=== PATIENT | female | born 1980 | race Caucasian/White ===

== ENCOUNTER 2018-05-23 23:28 | Observation (INO) ==
[2018-05-23 23:55] LABS: Basophils % 0.2 % (0.1-2.0); Eosinophils # 0.1 K/mm3 (0.0-0.4); Eosinophils % 1.1 % (0.1-12.0); Hematocrit 48.1 % (37.0-47.0); Hemoglobin 15.8 g/dL (12.2-16.2); Lymphocytes # 1.7 K/mm3 (0.7-4.5); Lymphocytes % 15.5 % (10-50); Mean Corpuscular HGB Conc 32.8 g/dL (31.8-35.4); Mean Corpuscular Hemoglobin 31.5 pg (27.0-31.2); Mean Corpuscular Volume 96.2 fl (81-99); Mean Platelet Volume 8.4 fl (7.4-10.4); Microscopic, Urine URINE MICROSCOPIC (MICROSCOPIC); Monocytes # 0.5 K/mm3 (0.1-1.0); Monocytes % 4.2 % (1.7-9.3); Neutrophils # 8.6 K/mm3 (1.8-7.8); Platelet Count 283 K/mm3 (142-424); Red Cell Distribution Width 13.3 % (11.5-17.5); White Blood Count 10.9 K/mm3 (4.8-10.8)
[2018-05-24 00:02] LABS: Appearance,Urine CLEAR (Clear); Bilirubin,Urine Negative (Negative); Blood, Urine 1+ (Negative); Color,Urine YELLOW (Yellow); Glucose,Urine (UA) Negative (Negative); Ketones,Urine Negative (Negative); Leukocyte Esterase,Urine Negative (Negative); Protein,Urine Negative (Negative); Specific Gravity, Urine 1.015 (1.005-1.030); Urobilinogen,Urine 0.2 EU/dl (0.2)
[2018-05-24 00:08] LABS: Albumin Level 4.5 gm/dL (3.4-5.0); Albumin/Globulin Ratio 1.2 (1.1-1.8); Anion Gap 13.4 mEq/L (5-15); Bilirubin,Total 0.4 mg/dL (0.2-1.0); C-Reactive Protein 0.4 mg/L (0.0-0.9); Calcium 9.3 mg/dL (8.5-10.1); Globulin 3.7 gm/dl (1.3-3.2); Potassium 3.4 mmoL/L (3.5-5.1); Total Protein,Serum 8.2 gm/dL (6.4-8.2)
[2018-05-24 00:17] LABS: Bacteria,Urine 1+ /lpf; WBC,Urine Occasional #/hpf (0-3)
--- NOTE | 2018-05-24 00:24 | Emergency Department Note ---
ED Disposition Clinical Impression: Tobacco use Vomiting Qualifiers: Vomiting type: unspecified Vomiting Intractability: intractable Nausea presence: with nausea Qualified Code(s): R11.2 - Nausea with vomiting, unspeci fied Disposition: Admitted as Observation Condition on Discharge: Good - Critical Care Critical Care Time: No Attestation: On 05/23/18, the high probability of a clinically significant, sudden or life threatening deterioration of the following system(s) required my full and direct attention, intervention and personal management. The time I documented below is in addition to time spent performing reported procedures but includes the following listed in this critical care notation. Medical Decision Making - Medical Records Medical records reviewed: Yes: I reviewed the patient's medical records. - Thomas Inquiry Pt receiving controlled substance: No Vital Signs: 05/23/18 23:28 05/24/18 00:00 05/24/18 00:59 Temperature 97.9 F Temperature Source Oral Pulse Rate [Right Brachial] 83 78 81 Respiratory Rate 15 16 16 Blood Pressure [Right Arm] 126/85 121/84 131/82 Blood Pressure Mean [Right Arm] 98 96 98 Blood Pressure Source [Right Arm] Automatic Cuff Automatic Cuff Blood Pressure Position [Right Arm] Supine Sitting 02 Sat by Pulse Oximetry 98 98 98 Oxygen Delivery Method Room Air Room Air Room Air 05/24/18 01:46 Temperature Temperature Source Pulse Rate [Right Brachial] 74 Respiratory Rate 16 Blood Pressure [Right Arm] 121/86 Blood Pressure Mean [Right Arm] 97 Blood Pressure Source [Right Arm] Blood Pressure Position [Right Arm] 02 Sat by Pulse Oximetry 98 Oxygen Delivery Method Room Air - Lab Data Lab results reviewed: Yes: I reviewed the patient's lab results. Lab Results 05/23/18 23:50: Urine Color Yellow, Urine Appearance Clear, Urine pH 6.0, Ur Specific [place] 1.015, Urine Protein Negative, Urine Glucose (UA) Negative, Urine Ketones Negative, Urine Blood 1+, Urine Nitrate Negative, Urine Bilirubin Negative, Urine Urobilinogen 0.2, Ur Leukocyte Esterase Negative, Urine RBC 3-5, Urine WBC Occasional, Ur Squamous Epith Cells 5-10, Urine Bacteria 1+ 05/23/18 23:50: WBC 10.9 H, RBC 5.00, Hgb 15.8, Hct 48.1 H, MCV 96.2, MCH 31.5 H , MCHC 32.8, RDW 13.3, Plt Count 283, MPV 8.4, Neut % (Auto) 79.0, Lymph % (Auto) 15.5, [place] % (Auto) 4.2, Eos % (Auto) 1.1, Baso % (Auto) 0.2, Neut # (Auto) 8.6 H, Lymph # (Auto) 1.7, [place] # (Auto) 0.5, Eos # (Auto) 0.1, Baso # (Auto) 0.0 05/23/18 23:50: Sodium 138, Potassium 3.4 L, Chloride 102, Carbon Dioxide 26, Anion Gap 13.4, BUN 13, Creatinine 0.81, Estimated Creat Clear 110, Estimated GFR 80, Est GFR ( Amer) 97, Glucose 106, Calcium 9.3, Total Bilirubin 0.4, AST 16, ALT 40, Alkaline Phosphatase 82, C-Reactive Protein 0.4, Total Protein 8.2, Albumin 4.5, Globulin 3.7 H, Albumin/Globulin Ratio 1.2, Amylase 60, Lipase 159 05/23/18 23:50: Serum HCG, Qual Negative 05/23/18 23:50: ESR 12 Result diagrams: 05/23/18 23:50 05/23/18 23:50 Orders (Tests/Meds): ED MEDICATIONS Generic Name Dose Route Start Last Admin Trade Name Freq PRN Reason Stop Dose Admin Sodium Chloride 1,000 mls @ 999 mls/hr 05/24/18 01:00 Sod Chlor 0.9% 1000ml Bag IV 05/24/18 02:00 .Q1H1M JUS Sodium Chloride 10 ml 05/23/18 23:43 Saline Flush 10ml Syringe IV 06/22/18 23:42 NEEDED PRN Maintain IV Site Discontinued Medications Generic Name Dose Route Start Last Admin Trade Name Freq PRN Reason Stop Dose Admin Famotidine 20 mg 05/23/18 23:43 05/24/18 00:19 Pepcid 20mg/2ml Vial IV 05/23/18 23:44 20 mg ONCE ONE Administration Sodium Chloride 1,000 mls @ 999 mls/hr 05/23/18 23:45 05/24/18 00:20 Sod Chlor 0.9% 1000ml Bag IV 05/24/18 00:45 999 mls/hr .Q1H1M JUS Administration Metoclopramide HCl 10 mg 01/03/19 23:43 05/24/18 00:20 Reglan 10mg/2ml Vial IVP 05/23/18 23:44 10 mg ONCE ONE Administration Ondansetron HCl 4 mg 05/24/18 00:58 Zofran 4mg/2ml Vial IV 05/24/18 00:59 ONCE ONE ORDERS Category Date Time Status CT abdomen pelvis wo con Stat Cat Scan 05/24/18 00:07 Taken Urinalysis and Microscopic Stat Lab 05/23/18 23:50 Ordered - CT Data CT Scan: Abdomen, Pelvis Time Received: 02:[address] Reviewed: Yes: I have viewed the radiologist's interpretation Preliminary Findings: Normal/NAD - Physician Consults Physician Consulted: iona Reason -: Admission Nausea/Vomiting/Diarrhea HPI - General Chief complaint: Nausea/Vomiting/Diarrhea Stated complaint: Vomiting, nausea X1 week Time Seen by Provider: 05/23/18 23:45 Mode of Arrival: Ambulatory Source of Information: Patient, Spouse, Medical Record Limitations: No Limitations Description of Symptoms (Recalled from ER Triage Doc. by RN): Pt here with c/o vomiting after eating. Denies any pain, denies any other symptoms, reports it just started about a week ago. Reports that once she eats, she starts vomiting for approx several hours, and it doesn't go away despite taking zofran. Spoke to Dr Oswald who advised her to come to the ED. - History of Present Illness HPI Narrative: upper abd pain with n/v w/o melena complaint: nausea, vomiting Onset (ago): hour(s) Associated Abdominal Pain: No Severity: moderate Associated symptoms: denies other symptoms - Related Data Home Medications Medication Instructions Recorded Confirmed No Known Home Medications 05/23/18 05/23/18 Allergies Allergy/AdvReac Type Severity Reaction Status Date / Time acetaminophen [From VICODIN] Allergy Intermediate Verified 05/24/18 00:19 hydrocodone [From VICODIN] Allergy Intermediate Verified 05/24/18 00:19 latex [LATEX] Allergy Intermediate I-RASH Verified 05/24/18 00:19 oxycodone [From PERCOCET] Allergy Unknown Verified 05/24/18 00:19 [facility] History - Hepatitis A Screen Drug use history?: No High risk sexual behaviors?: No History of sexually transmitted infection?: No Currently employed?: No Childcare worker?: No Do you have indoor plumbing?: Yes Do you have electricity?: Yes Attestation statement:: This patient has been screened for Hepatitis A risk factors. I have reviewed the patient's past medical history: Yes Medical History: Denies:: Cancer, Diabetes Mellitus Type 1, Diabetes Mellitus Type 2, MRSA Amputation: No Fractures: No - Social History Smoking Status: Current every day smoker Tobacco Type: cigarettes Alcohol Intake: never - Psychiatric History Expresses thoughts of harming self/others: None Suicide Plan Description: No Plan ROS Obtained: Yes All systems reviewed & no additional complaints - Constitutional Constitutional: Denies fever(s) - Eyes Eyes: Denies change in vision - ENT Ears, Nose, Mouth, and Throat: Denies sore throat - Cardiovascular Cardiovascular: Denies chest pain - Respiratory Respiratory: No cough - Gastrointestinal Gastrointestingal: Reports: abdominal pain, nausea, vomiting. Denies: diarrhea, black, tarry stools - Genitourinary Male Genitourinary: Reports hematuria Female Genitourinary: Denies dysuria, Denies hematuria - Musculoskeletal Musculoskeletal: Denies joint pain, Denies neck pain - Integumentary/Breasts Skin/Breast: Denies rash - Neurologic Neurologic: Denies headache(s), Denies seizure-like activity Physical Exam - General General appearance: alert, in no apparent distress - Head Head exam: normocephalic - Eye Eye exam: Present: PERRL, EOMI. Absent: scleral icterus - ENT ENT exam: Present: mucous membranes dry - Neck Neck exam: Present: trachea midline - Respiratory Respiratory exam: Absent: respiratory distress - Cardiovascular Cardiovascular exam: Present: regular rate, systolic murmur - Abdominal Exam Abdominal exam: Present: soft. Absent: tenderness - Extremities Exam Extremities exam: Present: full ROM - Neurological Exam Neurological exam: Present: alert, oriented X3, CN II-XII intact - Psychiatric Psychiatric exam: Present: normal affect - Skin Skin exam: Absent: rash
--- NOTE | 2018-05-24 07:19 | Pharmacy Consult Notes ---
[facility] Pharmacy VTE Monitoring - Patient Demographics Admission date: 05/24/18 Report Date: 05/24/18 Time: 07:18 Allergies/Adverse Reactions: Patient Allergies acetaminophen [From VICODIN] Allergy (Intermediate, Verified 05/24/18 00:19) hydrocodone [From VICODIN] Allergy (Intermediate, Verified 05/24/18 00:19) latex [LATEX] Allergy (Intermediate, Verified 05/24/18 00:19) I-RASH oxycodone [From PERCOCET] Allergy (Unknown, Verified 05/24/18 00:19) Height: 1.6 m Weight: 78.273 kg Patient Problems: Current Active Problems Vomiting (Acute) Tobacco use (Acute) - VTE Risk Labs: VTE Related Lab Results Hgb 15.8 g/dL (12.2-16.2) 05/23/18 23:50 Hct 48.1 % (37.0-47.0) H 05/23/18 23:50 Plt Count 283 K/mm3 (142-424) 05/23/18 23:50 BUN 13 mg/dL (7-18) 05/23/18 23:50 Creatinine 0.81 mg/dL (0.55-1.02) 05/23/18 23:50 Estimated Creat Clear 110 mL/min (50-200) 05/23/18 23:50 Was VTE Risk Assessment Performed: Yes VTE Score: 1 VTE Risk Level: Very Low Risk Clinical Trial Participant: No - Prophylaxis VTE Prophylaxis Ordered?: Yes Types of VTE Prophylaxis: TEDS Knee High
[2018-05-24 07:31] LABS: Anion Gap 11.5 mEq/L (5-15); Potassium 3.5 mmoL/L (3.5-5.1)
[2018-05-24 07:36] LABS: Basophils % 0.2 % (0.1-2.0); Calcium 8.2 mg/dL (8.5-10.1); Eosinophils # 0.1 K/mm3 (0.0-0.4); Eosinophils % 1.1 % (0.1-12.0); Hematocrit 40.2 % (37.0-47.0); Lymphocytes # 2.1 K/mm3 (0.7-4.5); Lymphocytes % 27.1 % (10-50); Mean Corpuscular HGB Conc 32.7 g/dL (31.8-35.4); Mean Corpuscular Hemoglobin 31.3 pg (27.0-31.2); Mean Corpuscular Volume 95.9 fl (81-99); Mean Platelet Volume 7.9 fl (7.4-10.4); Monocytes # 0.4 K/mm3 (0.1-1.0); Monocytes % 5.3 % (1.7-9.3); Neutrophils # 5.1 K/mm3 (1.8-7.8); Neutrophils % 66.3 % (37.0-80.0); Platelet Count 223 K/mm3 (142-424); Red Cell Distribution Width 13.1 % (11.5-17.5); White Blood Count 7.8 K/mm3 (4.8-10.8)
[2018-05-24 07:43] LABS: Hemoglobin 13.1 g/dL (12.2-16.2)
--- NOTE | 2018-05-24 08:17 | Consult Report ---
*Admission Date: 05/24/18 *Chief complaint: Vomiting *History of present illness: Healthy white female. She states that over the past week she has had postprandial vomiting. This occurs approximately 30 minutes after eating. There are no particular food types which are more problematic. She states that it occurs within a food intake. She states that she has been able to take in fluids without issue. She denies any abdominal pain. Denies any diarrhea. Never had any prior similar symptoms. No prior history of known gallbladder issues. No known prior history of ulcer disease. Yesterday after she had eaten some cheese and pepperoni she had intractable vomiting and presented to the emergency department. She was seen and evaluated and blood work was unremarkable. She had a CT scan performed without any contrast whatsoever which was unremarkable. She was admitted for inpatient management and surgical consultation. Review of Systems - Review of Systems Review of systems:: pertinent systems reviewed and negative unless documented below - Constitutional Denies anorexia - Eyes Denies change in vision - ENT Denies abnormal hearing - *Cardiovascular Denies chest pain - *Respiratory Denies shortness of breath - *Gastrointestinal Reports vomiting, Denies abdominal pain - *Genitourinary Denies abnormal periods - *Musculoskeletal Denies abnormal walking - *Neurologic Denies headache(s), Denies seizure-like activity [facility] History Medical History: Denies:: Cancer, Diabetes Mellitus Type 1, Diabetes Mellitus Type 2, MRSA Other Surgeries: Yes: Appendectomy, , Hysterectomy-Total Amputation: No Fractures: No - *Social History Smoking Status: Current every day smoker Tobacco Type: cigarettes # Packs/Day (cigarettes): 1 Alcohol Intake: never Occupational Status: employed Housing: house Household Members: spouse - Psychiatric History Expresses thoughts of harming self/others: None Suicide Plan Description: No Plan *Family Hx:: Cancer Meds Home Medications Medication Instructions Recorded Confirmed Type Desvenlafaxine Succinate 50 mg PO DAILY 05/24/18 05/24/18 History [Desvenlafaxine Succinate ER] Allergies Allergy/AdvReac Type Severity Reaction Status Date / Time acetaminophen [From VICODIN] Allergy Intermediate Verified 05/24/18 00:19 hydrocodone [From VICODIN] Allergy Intermediate Verified 05/24/18 00:19 latex [LATEX] Allergy Intermediate I-RASH Verified 05/24/18 00:19 oxycodone [From PERCOCET] Allergy Unknown Verified 05/24/18 00:19 Exam Vital signs and Labs for Last 24 Hours: Temp Pulse Resp BP Pulse Ox 97.9 F 78 17 129/76 99 05/24/18 03:03 05/24/18 03:03 05/24/18 03:03 05/24/18 03:03 05/24/18 03:03 Laboratory Results - last 24 hr 05/23/18 23:50: Urine Color Yellow, Urine Appearance Clear, Urine pH 6.0, Ur Specific [place] 1.015, Urine Protein Negative, Urine Glucose (UA) Negative, Urine Ketones Negative, Urine Blood 1+, Urine Nitrate Negative, Urine Bilirubin Negative, Urine Urobilinogen 0.2, Ur Leukocyte Esterase Negative, Urine RBC 3-5, Urine WBC Occasional, Ur Squamous Epith Cells 5-10, Urine Bacteria 1+ 05/23/18 23:50: WBC 10.9 H, RBC 5.00, Hgb 15.8, Hct 48.1 H, MCV 96.2, MCH 31.5 H , MCHC 32.8, RDW 13.3, Plt Count 283, MPV 8.4, Neut % (Auto) 79.0, Lymph % (Auto) 15.5, [place] % (Auto) 4.2, Eos % (Auto) 1.1, Baso % (Auto) 0.2, Neut # (Auto) 8.6 H, Lymph # (Auto) 1.7, [place] # (Auto) 0.5, Eos # (Auto) 0.1, Baso # (Auto) 0.0 05/23/18 23:50: Sodium 138, Potassium 3.4 L, Chloride 102, Carbon Dioxide 26, Anion Gap 13.4, BUN 13, Creatinine 0.81, Estimated Creat Clear 110, Estimated GFR 80, Est GFR ( Amer) 97, Glucose 106, Calcium 9.3, Total Bilirubin 0.4, AST 16, ALT 40, Alkaline Phosphatase 82, C-Reactive Protein 0.4, Total Protein 8.2, Albumin 4.5, Globulin 3.7 H, Albumin/Globulin Ratio 1.2, Amylase 60, Lipase 159 05/23/18 23:50: Serum HCG, Qual Negative 05/23/18 23:50: ESR 12 05/24/18 06:46: WBC 7.8 D, RBC 4.20, Hgb 13.1 D, Hct 40.2, MCV 95.9, MCH 31.3 H, MCHC 32.7, RDW 13.1, Plt Count 223, MPV 7.9, Neut % (Auto) 66.3, Lymph % (Auto) 27.1, [place] % (Auto) 5.3, Eos % (Auto) 1.1, Baso % (Auto) 0.2, Neut # (Auto) 5.1, Lymph # (Auto) 2.1, [place] # (Auto) 0.4, Eos # (Auto) 0.1, Baso # (Auto) 0.0 05/24/18 06:46: Sodium 141, Potassium 3.5, Chloride 109 H, Carbon Dioxide 24, Anion Gap 11.5, BUN 9 D, Creatinine 0.61 D, Estimated Creat Clear 158, Estimated GFR 111, Est GFR ( Amer) 134 D, Glucose 85, Calcium 8.2 L D 05/24/18 06:46: Magnesium 1.7 I & O for Last 24 hours: Intake & Output 05/21/18 05/22/18 05/23/18 05/24/18 11:59 11:59 11:59 11:59 Intake Total 2251 / 2251 Balance 2251 / 2251 Weight 172 lb 9 oz - *Routine HEENT Exam Head: Present: normocephalic Eye: Present: EOMI, PERRL ENT: Present: mucous membranes moist - *Routine Neck Exam Present: supple. Absent: lymphadenopathy - *Routine Respiratory Exam Present: CTA bilaterally - *Routine Cardiovascular Exam Present: RRR - *Routine Abdominal Exam Present: soft, normoactive bowel sounds. Absent: tenderness - *Routine Extremities Exam Absent: cyanosis, clubbing, edema - *Routine Skin Exam Present: warm. Absent: rash - *Routine Neurological Exam Present: alert, oriented X3 - Detailed Eye Exam Eyelids: Left normal inspection Results - Labs 05/24/18 06:46 05/24/18 06:46 Laboratory Results - last 24 hr 05/23/18 23:50: Urine Color Yellow, Urine Appearance Clear, Urine pH 6.0, Ur Specific [place] 1.015, Urine Protein Negative, Urine Glucose (UA) Negative, Urine Ketones Negative, Urine Blood 1+, Urine Nitrate Negative, Urine Bilirubin Negative, Urine Urobilinogen 0.2, Ur Leukocyte Esterase Negative, Urine RBC 3-5, Urine WBC Occasional, Ur Squamous Epith Cells 5-10, Urine Bacteria 1+ 05/23/18 23:50: WBC 10.9 H, RBC 5.00, Hgb 15.8, Hct 48.1 H, MCV 96.2, MCH 31.5 H , MCHC 32.8, RDW 13.3, Plt Count 283, MPV 8.4, Neut % (Auto) 79.0, Lymph % (Auto) 15.5, [place] % (Auto) 4.2, Eos % (Auto) 1.1, Baso % (Auto) 0.2, Neut # (Auto) 8.6 H, Lymph # (Auto) 1.7, [place] # (Auto) 0.5, Eos # (Auto) 0.1, Baso # (Auto) 0.0 05/23/18 23:50: Sodium 138, Potassium 3.4 L, Chloride 102, Carbon Dioxide 26, Anion Gap 13.4, BUN 13, Creatinine 0.81, Estimated Creat Clear 110, Estimated GFR 80, Est GFR ( Amer) 97, Glucose 106, Calcium 9.3, Total Bilirubin 0.4, AST 16, ALT 40, Alkaline Phosphatase 82, C-Reactive Protein 0.4, Total Protein 8.2, Albumin 4.5, Globulin 3.7 H, Albumin/Globulin Ratio 1.2, Amylase 60, Lipase 159 05/23/18 23:50: Serum HCG, Qual Negative 05/23/18 23:50: ESR 12 05/24/18 06:46: WBC 7.8 D, RBC 4.20, Hgb 13.1 D, Hct 40.2, MCV 95.9, MCH 31.3 H, MCHC 32.7, RDW 13.1, Plt Count 223, MPV 7.9, Neut % (Auto) 66.3, Lymph % (Auto) 27.1, [place] % (Auto) 5.3, Eos % (Auto) 1.1, Baso % (Auto) 0.2, Neut # (Auto) 5.1, Lymph # (Auto) 2.1, [place] # (Auto) 0.4, Eos # (Auto) 0.1, Baso # (Auto) 0.0 05/24/18 06:46: Sodium 141, Potassium 3.5, Chloride 109 H, Carbon Dioxide 24, Anion Gap 11.5, BUN 9 D, Creatinine 0.61 D, Estimated Creat Clear 158, Estimated GFR 111, Est GFR ( Amer) 134 D, Glucose 85, Calcium 8.2 L D 05/24/18 06:46: Magnesium 1.7 Assessment and Plan - Assessment and plan all Dx Assessment and Plan for all problems:: Patient has postprandial vomiting with food intake. Gallbladder ultrasound ordered for today. Etiology unclear. Gallbladder etiology possible although unusual as the patient does not have any pain. Plan to obtain upper GI series as well. Could require gastroenterology evaluation.
--- NOTE | 2018-05-24 08:27 | History & Physical Report ---
*Admission Date: 05/24/18 <Alka Mora 05/24/18 08:30> *Chief complaint: nausea and vomiting <Alka Mora 05/24/18 08:30> *History of present illness: Ms. Craft is a 38-year-old female who states she began having some nausea after eating approximately 1 week ago. Sunday night, she vomited one time and last night, she vomited 6 times. She was unable to keep down even water last night and therefore presented to the emergency room for evaluation and treatment. She denies any abdominal pain. She has not vomited since she arrived at the emergency room and was given antiemetics and started on IV fluids. She has not had any food this am. <Alka Mora 05/24/18 08:30> [facility] History Medical History: Reports:: Depression Denies:: Cancer, Diabetes Mellitus Type 1, Diabetes Mellitus Type 2, MRSA <Alka Mora 05/24/18 08:30> Other Surgeries: Yes: Appendectomy, , Hysterectomy-Total, Other (left nephrectomy, knee scope) <Alka Mora 05/24/18 08:30> Amputation: No <Alka Mora 05/24/18 08:30> Fractures: No <Alka Mora 05/24/18 08:30> - *Social History Smoking Status: Current every day smoker <Alka Mora 05/24/18 08:30> Tobacco Type: cigarettes <Alka Mora 05/24/18 08:30> # Packs/Day (cigarettes): 1 <Alka Mora 05/24/18 08:30> Alcohol Intake: never <Alka Mora 05/24/18 08:30> Occupational Status: employed <Alka Mroa 05/24/18 08:30> Housing: house <Alak Mora 05/24/18 08:30> Household Members: spouse <Alka Mora 05/24/18 08:30> - Psychiatric History Expresses thoughts of harming self/others: None <Alka Mora 05/24/18 08:30> Suicide Plan Description: No Plan <Alka Mora 05/24/18 08:30> *Family Hx:: Cancer, Hypertension <Alka Mora 05/24/18 08:30> Review of Systems - Constitutional Reports weakness, Denies body ache(s), Denies chills <Alka Mora 05/24/18 08:30> - Eyes Denies blurry vision, Denies double vision <Alka Mora 05/24/18 08:30> - ENT Denies nasal congestion, Denies sore throat <Alka Mora 05/24/18 08:30> - *Cardiovascular Denies chest pain, Denies leg swelling <Alka Mora 05/24/18 08:30> - *Respiratory Denies cough, Denies shortness of breath <Alka Mora 05/24/18 08:30> - *Gastrointestinal Reports nausea, Reports vomiting, Denies abdominal pain, Denies loose stools <Alka Mora 05/24/18 08:30> - *Genitourinary Denies difficulty urinating, Denies painful urination <Alka Mora 05/24/18 08:30> - *Musculoskeletal Denies joint pain <Alka Mora 05/24/18 08:30> - *Neurologic Reports headache(s), Reports weakness, Denies abnormal walking, Denies abnormal hearing, Denies seizure-like activity, Denies dizziness <Alka Mora 05/24/18 08:30> Meds Home Medications Medication Instructions Recorded Confirmed Type Desvenlafaxine Succinate 50 mg PO DAILY 05/24/18 05/24/18 History [Desvenlafaxine Succinate ER] Metoclopramide HCl [Reglan 5mg 5 mg PO Q6HP PRN 30 Days #30 tab 05/24/18 Rx Tablet] Promethazine HCl [Phenergan 12.5mg 12.5 mg PO Q6HP PRN #30 tablet 05/24/18 Rx tablet] <Mehreen Oswald 05/24/18 13:30> Allergies Allergy/AdvReac Type Severity Reaction Status Date / Time acetaminophen [From VICODIN] Allergy Intermediate Verified 05/24/18 00:19 hydrocodone [From VICODIN] Allergy Intermediate Verified 05/24/18 00:19 latex [LATEX] Allergy Intermediate I-RASH Verified 01/04/19 00:19 oxycodone [From PERCOCET] Allergy Unknown Verified 05/24/18 00:19 <Sound,Mehreen - 05/24/18 13:30> Exam Vital signs and Labs for Last 24 Hours: Temp Pulse Resp BP Pulse Ox 98.0 F 87 16 103/60 L 97 05/24/18 08:00 05/24/18 08:00 05/24/18 08:00 05/24/18 08:00 05/24/18 08:00 Laboratory Results - last 24 hr 05/23/18 23:50: Urine Color Yellow, Urine Appearance Clear, Urine pH 6.0, Ur Specific [place] 1.015, Urine Protein Negative, Urine Glucose (UA) Negative, Urine Ketones Negative, Urine Blood 1+, Urine Nitrate Negative, Urine Bilirubin Negative, Urine Urobilinogen 0.2, Ur Leukocyte Esterase Negative, Urine RBC 3-5, Urine WBC Occasional, Ur Squamous Epith Cells 5-10, Urine Bacteria 1+ 05/23/18 23:50: WBC 10.9 H, RBC 5.00, Hgb 15.8, Hct 48.1 H, MCV 96.2, MCH 31.5 H , MCHC 32.8, RDW 13.3, Plt Count 283, MPV 8.4, Neut % (Auto) 79.0, Lymph % (Auto) 15.5, [place] % (Auto) 4.2, Eos % (Auto) 1.1, Baso % (Auto) 0.2, Neut # (Auto) 8.6 H, Lymph # (Auto) 1.7, [place] # (Auto) 0.5, Eos # (Auto) 0.1, Baso # (Auto) 0.0 05/23/18 23:50: Sodium 138, Potassium 3.4 L, Chloride 102, Carbon Dioxide 26, Anion Gap 13.4, BUN 13, Creatinine 0.81, Estimated Creat Clear 110, Estimated GFR 80, Est GFR ( Amer) 97, Glucose 106, Calcium 9.3, Total Bilirubin 0.4, AST 16, ALT 40, Alkaline Phosphatase 82, C-Reactive Protein 0.4, Total Protein 8.2, Albumin 4.5, Globulin 3.7 H, Albumin/Globulin Ratio 1.2, Amylase 60, Lipase 159 05/23/18 23:50: Serum HCG, Qual Negative 05/23/18 23:50: ESR 12 05/24/18 06:46: WBC 7.8 D, RBC 4.20, Hgb 13.1 D, Hct 40.2, MCV 95.9, MCH 31.3 H, MCHC 32.7, RDW 13.1, Plt Count 223, MPV 7.9, Neut % (Auto) 66.3, Lymph % (Auto) 27.1, [place] % (Auto) 5.3, Eos % (Auto) 1.1, Baso % (Auto) 0.2, Neut # (Auto) 5.1, Lymph # (Auto) 2.1, [place] # (Auto) 0.4, Eos # (Auto) 0.1, Baso # (Auto) 0.0 05/24/18 06:46: Sodium 141, Potassium 3.5, Chloride 109 H, Carbon Dioxide 24, Anion Gap 11.5, BUN 9 D, Creatinine 0.61 D, Estimated Creat Clear 158, Estimated GFR 111, Est GFR ( Amer) 134 D, Glucose 85, Calcium 8.2 L D 05/24/18 06:46: Magnesium 1.7 <Sound,Mehreen - 05/24/18 13:30> Temp Pulse Resp BP Pulse Ox 98.0 F 87 16 103/60 L 97 05/24/18 08:00 05/24/18 08:00 05/24/18 08:00 05/24/18 08:00 05/24/18 08:00 Laboratory Results - last 24 hr 05/23/18 23:50: Urine Color Yellow, Urine Appearance Clear, Urine pH 6.0, Ur Specific [place] 1.015, Urine Protein Negative, Urine Glucose (UA) Negative, Urine Ketones Negative, Urine Blood 1+, Urine Nitrate Negative, Urine Bilirubin Negative, Urine Urobilinogen 0.2, Ur Leukocyte Esterase Negative, Urine RBC 3-5, Urine WBC Occasional, Ur Squamous Epith Cells 5-10, Urine Bacteria 1+ 05/23/18 23:50: WBC 10.9 H, RBC 5.00, Hgb 15.8, Hct 48.1 H, MCV 96.2, MCH 31.5 H , MCHC 32.8, RDW 13.3, Plt Count 283, MPV 8.4, Neut % (Auto) 79.0, Lymph % (Auto) 15.5, [place] % (Auto) 4.2, Eos % (Auto) 1.1, Baso % (Auto) 0.2, Neut # (Auto) 8.6 H, Lymph # (Auto) 1.7, [place] # (Auto) 0.5, Eos # (Auto) 0.1, Baso # (Auto) 0.0 05/23/18 23:50: Sodium 138, Potassium 3.4 L, Chloride 102, Carbon Dioxide 26, Anion Gap 13.4, BUN 13, Creatinine 0.81, Estimated Creat Clear 110, Estimated GFR 80, Est GFR ( Amer) 97, Glucose 106, Calcium 9.3, Total Bilirubin 0.4, AST 16, ALT 40, Alkaline Phosphatase 82, C-Reactive Protein 0.4, Total Protein 8.2, Albumin 4.5, Globulin 3.7 H, Albumin/Globulin Ratio 1.2, Amylase 60, Lipase 159 05/23/18 23:50: Serum HCG, Qual Negative 05/23/18 23:50: ESR 12 05/24/18 06:46: WBC 7.8 D, RBC 4.20, Hgb 13.1 D, Hct 40.2, MCV 95.9, MCH 31.3 H, MCHC 32.7, RDW 13.1, Plt Count 223, MPV 7.9, Neut % (Auto) 66.3, Lymph % (Auto) 27.1, [place] % (Auto) 5.3, Eos % (Auto) 1.1, Baso % (Auto) 0.2, Neut # (Auto) 5.1, Lymph # (Auto) 2.1, [place] # (Auto) 0.4, Eos # (Auto) 0.1, Baso # (Auto) 0.0 05/24/18 06:46: Sodium 141, Potassium 3.5, Chloride 109 H, Carbon Dioxide 24, Anion Gap 11.5, BUN 9 D, Creatinine 0.61 D, Estimated Creat Clear 158, Estimated GFR 111, Est GFR ( Amer) 134 D, Glucose 85, Calcium 8.2 L D 05/24/18 06:46: Magnesium 1.7 <Alka Mora - 05/24/18 08:30> I & O for Last 24 hours: Intake & Output 05/22/18 05/23/18 05/24/1805/25/19 11:59 11:59 11:59 11:59 Intake Total 2251 / 2251 240 / 240 Balance 2251 / 2251 240 / 240 Weight 172 lb 9 oz <Mehreen Oswald - 05/24/18 13:30> Intake & Output 05/21/18 05/22/18 05/23/18 05/24/18 11:59 11:59 11:59 11:59 Intake Total 2251 / 2251 Balance 2251 / 2251 Weight 172 lb 9 oz <MorganAlka - 05/24/18 08:30> - Constitutional no acute distress <MorganAlka - 05/24/18 08:30> - *Routine HEENT Exam Head: Present: normocephalic, atraumatic <AlecrobyAlka 05/24/18 08:30> Eye: Present: EOMI, PERRL <MorganAlka 05/24/18 08:30> ENT: Present: mucous membranes dry <AlecrobyAlka 05/24/18 08:30> - *Routine Neck Exam Present: supple. Absent: lymphadenopathy <AlecrobyAlka 05/24/18 08:30> - *Routine Respiratory Exam Present: CTA bilaterally <AlecrobyAlka 05/24/18 08:30> - *Routine Cardiovascular Exam Present: RRR <AlecrobyAlka 05/24/18 08:30> - *Routine Abdominal Exam Present: soft, normoactive bowel sounds. Absent: tenderness <AlecrobyAlka 05/24/18 08:30> - *Routine Extremities Exam Absent: cyanosis, clubbing, edema <MorganAlka - 05/24/18 08:30> - *Routine Skin Exam Present: warm. Absent: rash <AlecrobyAlka 05/24/18 08:30> - *Routine Neurological Exam Present: alert, oriented X3 <MorganAlka 05/24/18 08:30> H&P: Result - Impressions Abd CT - No acute intra-abdominal or pelvic findings apparent <MorganAlka 05/24/18 08:30> Assessment and Plan (1) Vomiting Current visit: Yes Status: Acute Qualifiers: Vomiting type: unspecified Vomiting Intractability: intractable Nausea presence: with nausea Qualified Code(s): R11.2 - Nausea with vomiting, unspec ified Category: Medical Code(s): R11.10 - Vomiting, unspecified (2) Tobacco use Current visit: Yes Status: Chronic Category: Medical Code(s): Z72.0 - Tobacco use (3) Depression Current visit: Yes Status: Chronic Category: Medical Code(s): F32.9 - Major depressive disorder, single episode, unspecified <Alka Mora 05/24/18 08:23> (1) Vomiting Current visit: Yes Status: Acute Qualifiers: Vomiting type: unspecified Vomiting Intractability: intractable Nausea presence: with nausea Qualified Code(s): R11.2 - Nausea with vomiting, unspecified Category: Medical Code(s): R11.10 - Vomiting, unspecified (2) Tobacco use Current visit: Yes Status: Chronic Category: Medical Code(s): Z72.0 - Tobacco use (3) Depression Current visit: Yes Status: Chronic Category: Medical Code(s): F32.9 - Major depressive disorder, single episode, unspecified <Mehreen Oswald 05/24/18 13:30> - Assessment and plan all Dx Assessment and Plan for all problems:: Patient did well with diet and was discharge home today with reglan and phenegran. US and GI series so far was unremarkable. <Mehreen Oswald 05/24/18 13:30> Nausea and vomiting has resolved. A right upper quadrant ultrasound has been ordered by the ER physician, therefore she must remain n.p.o. until the ultrasound. <Alka Mora 05/24/18 08:30>
--- NOTE | 2018-05-24 16:03 | Discharge Summary ---
General - General Admission date:: 05/24/18 Discharge date: 05/24/18 HPI HPI: Ms. Craft is a 38-year-old female who states she began having some nausea after eating approximately 1 week ago. Sunday night, she vomited one time and last night, she vomited 6 times. She was unable to keep down even water last night and therefore presented to the emergency room for evaluation and treatment. She denies any abdominal pain. She has not vomited since she arrived at the emergency room and was given antiemetics and started on IV fluids. She has not had any food this am. Hospital Course Hospital Course: The patient had no further vomiting. Her abdominal CT was unremarkable. She had a right upper quadrant ultrasound that was also unremarkable. Surgery was consulted and ordered an upper GI. It showed some mild reflux but was otherwise unremarkable. They felt she may need outpatient GI workup. The patient tolerated a diet and was stable to be discharged home on reglan and phenergan. She will follow-up in the office of [facility]. Objective Vital signs: Temp Pulse Resp BP Pulse Ox 98.0 F 87 16 103/60 L 97 05/24/18 08:00 05/24/18 08:00 05/24/18 08:00 05/24/18 08:00 05/24/18 08:00 Narrative: - Constitutional no acute distress - *Routine HEENT Exam Head: Present: normocephalic, atraumatic Eye: Present: EOMI, PERRL ENT: Present: mucous membranes dry - *Routine Neck Exam Present: supple. Absent: lymphadenopathy - *Routine Respiratory Exam Present: CTA bilaterally - *Routine Cardiovascular Exam Present: RRR - *Routine Abdominal Exam Present: soft, normoactive bowel sounds. Absent: tenderness - *Routine Extremities Exam Absent: cyanosis, clubbing, edema - *Routine Skin Exam Present: warm. Absent: rash - *Routine Neurological Exam Present: alert, oriented X3 Results Labs on day of discharge: Labs from last 24 hours 05/24/18 05/24/18 05/24/18 06:46 06:46 06:46 WBC 7.8 D RBC 4.20 Hgb 13.1 D Hct 40.2 MCV 95.9 MCH 31.3 H MCHC 32.7 RDW 13.1 Plt Count 223 MPV 7.9 Neut % (Auto) 66.3 Lymph % (Auto) 27.1 [place] % (Auto) 5.3 Eos % (Auto) 1.1 Baso % (Auto) 0.2 Neut # (Auto) 5.1 Lymph # (Auto) 2.1 [place] # (Auto) 0.4 Eos # (Auto) 0.1 Baso # (Auto) 0.0 ESR Sodium 141 Potassium 3.5 Chloride 109 H Carbon Dioxide 24 Anion Gap 11.5 BUN 9 D Creatinine 0.61 D Estimated Creat Clear 158 Estimated GFR 111 Est GFR ( Amer) 134 D Glucose 85 Calcium 8.2 L D Magnesium 1.7 Total Bilirubin AST ALT Alkaline Phosphatase C-Reactive Protein Total Protein Albumin Globulin Albumin/Globulin Ratio Amylase Lipase Serum HCG, Qual Urine Color Urine Appearance Urine pH Ur Specific [place] Urine Protein Urine Glucose (UA) Urine Ketones Urine Blood Urine Nitrate Urine Bilirubin Urine Urobilinogen Ur Leukocyte Esterase Urine RBC Urine WBC Ur Squamous Epith Cells Urine Bacteria 05/23/18 05/23/18 05/23/18 23:50 23:50 23:50 WBC RBC Hgb Hct MCV MCH MCHC RDW Plt Count MPV Neut % (Auto) Lymph % (Auto) [place] % (Auto) Eos % (Auto) Baso % (Auto) Neut # (Auto) Lymph # (Auto) [place] # (Auto) Eos # (Auto) Baso # (Auto) ESR 12 Sodium 138 Potassium 3.4 L Chloride 102 Carbon Dioxide 26 Anion Gap 13.4 BUN 13 Creatinine 0.81 Estimated Creat Clear 110 Estimated GFR 80 Est GFR ( Amer) 97 Glucose 106 Calcium 9.3 Magnesium Total Bilirubin 0.4 AST 16 ALT 40 Alkaline Phosphatase 82 C-Reactive Protein 0.4 Total Protein 8.2 Albumin 4.5 Globulin 3.7 H Albumin/Globulin Ratio 1.2 Amylase 60 Lipase 159 Serum HCG, Qual Negative Urine Color Urine Appearance Urine pH Ur Specific [place] Urine Protein Urine Glucose (UA) Urine Ketones Urine Blood Urine Nitrate Urine Bilirubin Urine Urobilinogen Ur Leukocyte Esterase Urine RBC Urine WBC Ur Squamous Epith Cells Urine Bacteria 05/23/18 05/23/18 23:50 23:50 WBC 10.9 H RBC 5.00 Hgb 15.8 Hct 48.1 H MCV 96.2 MCH 31.5 H MCHC 32.8 RDW 13.3 Plt Count 283 MPV 8.4 Neut % (Auto) 79.0 Lymph % (Auto) 15.5 [place] % (Auto) 4.2 Eos % (Auto) 1.1 Baso % (Auto) 0.2 Neut # (Auto) 8.6 H Lymph # (Auto) 1.7 [place] # (Auto) 0.5 Eos # (Auto) 0.1 Baso # (Auto) 0.0 ESR Sodium Potassium Chloride Carbon Dioxide Anion Gap BUN Creatinine Estimated Creat Clear Estimated GFR Est GFR ( Amer) Glucose Calcium Magnesium Total Bilirubin AST ALT Alkaline Phosphatase C-Reactive Protein Total Protein Albumin Globulin Albumin/Globulin Ratio Amylase Lipase Serum HCG, Qual Urine Color Yellow Urine Appearance Clear Urine pH 6.0 Ur Specific [place] 1.015 Urine Protein Negative Urine Glucose (UA) Negative Urine Ketones Negative Urine Blood 1+ Urine Nitrate Negative Urine Bilirubin Negative Urine Urobilinogen 0.2 Ur Leukocyte Esterase Negative Urine RBC 3-5 Urine WBC Occasional Ur Squamous Epith Cells 5-10 Urine Bacteria 1+ DS: Diagnosis - Discharge Diagnosis (1) Vomiting Status: Acute (2) Tobacco use Status: Chronic (3) Depression Status: Chronic Discharge Plan - Patient Discharge Instructions ACTIVITY: Continue current activity DIET: continue same diet Patient Instructions: DI for Vomiting -- Adult, Nausea and Vomiting-Adult - Follow up Plan Follow up with: Mehreen Oswald MD [Primary Care Provider] - 2 days Disposition: Home, Self-Retirement Medications: Home Medications Medication Instructions Recorded Confirmed Type Desvenlafaxine Succinate 50 mg PO DAILY 05/24/18 05/24/18 History [Desvenlafaxine Succinate ER] Metoclopramide HCl [Reglan 5mg 5 mg PO Q6HP PRN 30 Days #30 tab 05/24/18 Rx Tablet] Promethazine HCl [Phenergan 12.5mg 12.5 mg PO Q6HP PRN #30 tablet 05/24/18 Rx tablet] Prescriptions/Medication Reconciliation: New Promethazine HCl [Phenergan 12.5mg tablet] 12.5 mg PO Q6HP PRN #30 tablet PRN Reason: Nausea Metoclopramide HCl [Reglan 5mg Tablet] 5 mg PO Q6HP PRN 30 Days #30 tab PRN Reason: Nausea Continue Desvenlafaxine Succinate [Desvenlafaxine Succinate ER] 50 mg PO DAILY
== END 2018-05-24 14:28 | disposition home or self-care (01) ==
LOC: ER 23:28 → 2ND 23:28
PROVIDERS: ADMIT Emergency Medicine; ATTEND Emergency Medicine
CPT/HCPCS: 36415; 74176; 74241; 76705; 80048; 80053; 81001; 82150; 83690; 83735; 84703; 85025; 85651; 86140; 96365; 96366; 96375; 99284; G0378

== ENCOUNTER → 2018-06-03 10:01 | Outpatient (CLI) | payer BC, SELFPAY ==
--- NOTE | 2018-06-03 10:10 | NM_ITS ---
NM hepatobiliary w pharm HISTORY: Postprandial vomiting ITS.REASON: V/N,ABD PAIN ORDERING PHYSICIAN: Mehreen Oswald MD PATIENT AGE: 38 years COMPARISON: None DOSE: 8.52 MCI TC Choletec 1.6mg cck INJ into RT ANT FINDINGS: Homogeneous activity is present within the hepatic parenchyma. Activity is present in the gallbladder by 10 minutes. Activity is present in the small bowel by 30 minutes. The gallbladder ejection fraction is calculated to be 95% The patient did not report pain or other symptoms during CCK infusion. IMPRESSION: Unremarkable hepatobiliary scan and gallbladder ejection fraction. No evidence of common or cystic duct obstruction with normal gallbladder ejection fraction
--- NOTE | 2018-06-03 10:34 | HMH.ITSHM ---
Current Home Medications as stated by this patient Myriam Dover or patient services representative. []PROMETHAZINE METOCLOPRAMIDE DESVENLAFAXINE SUCCINATE
== END ==
PROVIDERS: PCP Emergency Medicine; Visit Provider Emergency Medicine
DX: R10.11 Right upper quadrant pain (principal); G43.A0 Cyclical vomiting, in migraine, not intractable
CPT/HCPCS: 78227; A9537; J2805

== ENCOUNTER → 2020-10-07 15:44 | Outpatient (CLI) | payer OTHER, SELFPAY ==
[2020-10-07 16:10] LABS: Adenovirus,PCR Not Detected (NotDetected); Bordetella Pertussis Not Detected (NotDetected); Chlamydophila Pneumoniae, PCR Not Detected (NotDetected); Coronavirus 19, PCR Not Detected (NotDetected); Coronavirus 229E Not Detected (NotDetected); Coronavirus NL63 Not Detected (NotDetected); Coronavirus OC43 Not Detected (NotDetected); Coronovirus HKU1,PCR Not Detected (NotDetected); Human Metapneumovirus Not Detected (NotDetected); Influenza A, PCR Not Detected (NotDetected); Influenza AH1, 2009 Not Detected (NotDetected); Influenza AH1, PCR Not Detected (NotDetected); Influenza AH3,PCR Not Detected (NotDetected); Influenza B, PCR Not Detected (NotDetected); Mycoplasma Pneumoniae, PCR Not Detected (NotDetected); Parainfluenza 1, PCR Not Detected (NotDetected); Parainfluenza 2, PCR Not Detected (NotDetected); Parainfluenza 3, PCR Not Detected (NotDetected); Parainfluenza 4, PCR Not Detected (NotDetected); Respiratory Syncytial Virus Not Detected (NotDetected)
[2020-10-07 16:18] LABS: Basophils % 0.5 % (0.1-2.0); Eosinophils # 0.2 K/mm3 (0.0-0.4); Eosinophils % 1.9 % (0.1-12.0); Hematocrit 42.7 % (37.0-47.0); Hemoglobin 14.5 g/dL (12.2-16.2); Lymphocytes % 22.4 % (10-50); Mean Corpuscular HGB Conc 33.9 g/dL (31.8-35.4); Mean Corpuscular Volume 91.6 fl (81-99); Monocytes # 0.4 K/mm3 (0.1-1.0); Monocytes % 4.2 % (1.7-9.3); Neutrophils # 6.5 K/mm3 (1.8-7.8); Neutrophils % 71.1 % (37.0-80.0); Platelet Count 336 K/mm3 (142-424); Red Blood Count 4.66 M/mm3 (4.20-5.40); Red Cell Distribution Width 13.2 % (11.5-17.5); White Blood Count 9.1 K/mm3 (4.8-10.8)
[2020-10-07 17:28] LABS: Rhinovirus/Enterovirus Detected (NotDetected)
== END ==
PROVIDERS: PCP Physician Assistant; Visit Provider Physician Assistant
DX: Z20.822 Contact with and (suspected) exposure to COVID-19 (principal); B34.1 Enterovirus infection, unspecified
CPT/HCPCS: 36415; 85025; 87581; 87633; 87798

== ENCOUNTER → 2021-01-06 10:51 | Outpatient (CLI) | payer OTHER, SELFPAY ==
[2021-01-06 13:23] LABS: Coronavirus 19, PCR Not Detected (NotDetected); Influenza A, PCR Not Detected (NotDetected); Influenza B, PCR Not Detected (NotDetected)
[2021-01-06 13:34] LABS: Basophils # 0.1 K/mm3 (0-0.2); Basophils % 0.3 % (0.1-2.0); Eosinophils % 0.3 % (0.1-12.0); Hematocrit 40.1 % (37.0-47.0); Hemoglobin 13.6 g/dL (12.2-16.2); Lymphocytes # 1.2 K/mm3 (0.7-4.5); Lymphocytes % 8.1 % (10-50); Mean Corpuscular HGB Conc 33.9 g/dL (31.8-35.4); Mean Corpuscular Hemoglobin 30.1 pg (27.0-31.2); Mean Platelet Volume 8.9 fl (7.4-10.4); Monocytes % 6.4 % (1.7-9.3); Neutrophils # 12.7 K/mm3 (1.8-7.8); Neutrophils % 84.8 % (37.0-80.0); Platelet Count 245 K/mm3 (142-424); Red Cell Distribution Width 13.7 % (11.5-17.5)
[2021-01-06 13:38] LABS: MANUAL DIFFERENTIAL MANUAL DIFFERENTIAL (MANUAL DIFF)
[2021-01-06 15:52] LABS: Lymphocytes % 10 % (10-50); Monocytes % 2 % (2-9); Neutrophils % 88 % (42-76); Platelet Estimate Normal; RBC Morphology Normal; Total Cells Counted 100
== END ==
PROVIDERS: PCP Family Medicine; Visit Provider Family Medicine
DX: Z20.822 Contact with and (suspected) exposure to COVID-19 (principal)
CPT/HCPCS: 36415; 85007; 85025; U0003

== ENCOUNTER → 2022-07-18 13:26 | Outpatient (CLI) | payer OTHER, SELFPAY ==
--- NOTE | 2022-07-18 13:31 | MM_ITS ---
PROCEDURE INFORMATION: Exam: MG Bilateral Screening 3D Mammography Exam date and time: 07/18/2022 1:23 PM Age: 42 years old Clinical indication: Screening examination. TECHNIQUE: Imaging protocol: Bilateral Screening tomosynthesis and 2D mammography including computer-aided detection (CAD) when performed. COMPARISON: 1. MG DMDB DIG MAMM-DX NEFTALI W/CAD 10/05/2016 1:46 PM 2. BL US BREAST-LT COMPLETE W/AXILLA 10/05/2016 2:15 PM FINDINGS: MAMMOGRAPHY: Breast composition: There are scattered areas of fibroglandular density. Mass: None. Architectural distortion: None. Calcifications: No suspicious calcifications. Asymmetric density: None. Skin thickening: None. Axillary adenopathy: None. IMPRESSION: No mammographic evidence of malignancy. Annual screening is recommended unless otherwise clinically indicated. ASSESSMENT: BI-RADS Category 1: Negative
== END ==
PROVIDERS: PCP Family Medicine; Visit Provider Physician Assistant
DX: Z12.31 Encounter for screening mammogram for malignant neoplasm of breast (principal)
CPT/HCPCS: 77063; 77067